=== PATIENT | male | born 1965 | race Caucasian/White ===

== ENCOUNTER 2023-07-15 19:52 | Emergency (ER) | payer OTHER ==
[~2023-07-15] VITALS: Ht 177.8 cm; Wt 102.1 kg
[2023-07-15] MEDS: KETOROLAC 60 MG VIAL (30MG/ML) IM ONE (23:19)
[2023-07-15] MEDS: HYDROCODONE/ACETAMINOPHEN 5/325 MG TAB PO ONE (23:20)
[2023-07-16] MEDS: HYDROMORPHONE 1 MG INJ IVP ONE (00:35)
[2023-07-16 00:41] VITALS: BP 158/73; PULSE 78; RESP 18; O2SAT 100
[2023-07-16] MEDS: LIDOCAINE HCL 1% 20 ML VIAL ONE (00:45)
== END 2023-07-16 00:52 | disposition home or self-care (01) ==
LOC: EDH 19:52
DX: S52.591A Other fractures of lower end of right radius, initial encounter for closed fracture (principal); W01.0XXA Fall on same level from slipping, tripping and stumbling without subsequent striking against object, initial encounter; Y93.89 Activity, other specified; Y92.89 Other specified places as the place of occurrence of the external cause; Y99.8 Other external cause status
CPT/HCPCS: 99284; 73100 ×2; 73130; 96372; 25605; 96374; J1885; J1170